=== PATIENT | female | born 1980 | race Two or more races ===

== ENCOUNTER 2022-05-12 15:07 | Outpatient (REF) | payer OTHER, SELFPAY ==
[2022-05-12 16:16] LABS: COVID-19 Test Positive (Negative); IDNOW Serial# 9DB6401D
== END 2022-05-12 15:08 | disposition home or self-care (01) ==
LOC: HO.LAB 15:07
PROVIDERS: Visit Provider Internal Medicine
DX: Z20.822 Contact with and (suspected) exposure to COVID-19 (principal)
CPT/HCPCS: 87635; C9803

== ENCOUNTER 2024-11-17 16:18 | Emergency (ER) | payer MEDICAID, SELFPAY ==
--- NOTE | ~2024-11-17 | CT_ITS ---
CLINICAL HISTORY: right flank pain CT abdomen and pelvis without contrast Comparison: None Findings: No consolidation or effusion. Gallbladder is surgically absent. No biliary ductal dilatation. The liver is mildly enlarged and demonstrates low parenchymal attenuation suggestive of steatosis. Unenhanced spleen, pancreas, adrenal glands and kidneys are unremarkable. No renal or ureteral stones and no hydronephrosis or hydroureter. No bowel obstruction, pneumoperitoneum, or pneumatosis. Appendix is unremarkable. No free fluid. Uterus within normal limits. Urinary bladder decompressed with apparent wall thickening likely from decompression. Small fat containing umbilical hernia. Abdominal aorta is normal in size. The bones are intact. IMPRESSION: 1. No acute findings. No renal or ureteral stones. 2. Previous cholecystectomy, mild hepatomegaly and hepatic steatosis. This document has been electronically signed by: Wilma Ontiveros MD on 11/17/2024 21:51:55
[2024-11-17 16:45] VITALS: BP 233/120; PULSE 104; RESP 16; TEMP 36.2; O2SAT 98; BMI 45.8
--- NOTE | 2024-11-17 16:45 | ED_ITS ---
HPI - General Adult General Chief complaint: Urogenital-Female Stated complaint: back pain-sent from urgent care Time Seen by Provider: 11/17/24 20:11 Source: patient Limitations: no limitations History of Present Illness ED Provider: Donna Garza PA-C HPI narrative: 44-year-old female with a history of morbid obesity, hypertension, who has nonadherence with her prescribed medications, presents with right flank pain x1 week. Pain over mid flank, with radiation to low back and right lower quadrant. The discomfort fluctuates in intensity, becoming severe at times. Associated dysuria, denies discoloration of her urine. Denies fever, nausea, vomiting. Denies risk for STD, no new vaginal discharge. Related Data Previous Rx's ?Medication ?Instructions ?Recorded cephalexin 500 mg capsule 500 mg PO BID #13 caps 11/17/24 Allergies Allergy/AdvReac Type Severity Reaction Status Date / Time No Known Allergies Allergy Verified 11/17/24 16:48 Review of Systems 2 Review of Systems: Yes all other systems are reviewed and are negative Constitutional: Constitutional: Denies fatigue and Denies fever(s) Cardiovascular: Cardiovascular: Denies chest pain and Denies dyspnea Respiratory: Respiratory: Denies cough and Denies dyspnea Gastrointestinal: Gastrointestinal: Reports abdominal pain, Denies nausea and Denies vomiting Genitourinary: Genitourinary: Denies hematuria, Reports dysuria and Reports flank pain Endocrine: Endocrine: Denies fatigue PMF Past Medical History Attestation statement: The following information was validated with the patient. Social History Social History Advance Directives: No Advance Directives Information Provided: No Do you have a plan to hurt others: No Plan Physical Exam ED Vital Signs: Vital Signs - 24 hr 11/17/24 16:45 11/17/24 20:31 Temperature 97.1 F 98.7 F Pulse Rate 104 H 100 Respiratory Rate 16 18 Blood Pressure 233/120 H 205/108 H Pulse Oximetry 98 97 Oxygen Delivery Method Room Air Room Air BMI result Body Mass Index 45.8 Const Other: Alert, well-appearing Orientation/consciousness: patient oriented x3 Resp Effort & Inspection: normal respiratory effort Cardio Other: Normal peripheral perfusion Back/Spine/Pelvis Other: No CVA tenderness Skin Other: Warm dry no rash Neuro General: patient oriented x3, gait normal, no focal motor deficits and CN's II- XI intact bilaterally Psych Other: Cooperative Course Course Course Narrative: RME performed by Matilde Ferguson PA-C. Patient is a 44 year old assigned female at presenting to the emergency department with low back pain and concern for kidney issues. Detailed physical exam and review of systems are deferred to the educational speech language clinician. Labs and swabs ordered. Patient placed back in the waiting room pending room availability and results. Medications Administered Discontinued Medications Generic Name Dose Route Start Last Admin Trade Name Nicholas PRN Reason Stop Dose Admin Cephalexin HCl 500 mg 11/17/24 20:48 11/17/24 21:07 Cephalexin 500 Mg Capsule PO 11/17/24 20:49 500 mg ONCE ONE Administration Ketorolac Tromethamine 15 mg 11/17/24 20:29 11/17/24 21:07 Ketorolac Tromethamine 15 Mg/Ml Vial IM 11/17/24 20:30 15 mg ONCE ONE Administration Methocarbamol 1,500 mg 11/17/24 20:29 11/17/24 21:07 Methocarbamol 750 Mg Tablet PO 11/17/24 20:30 1,500 mg ONCE ONE Administration Medical Decision Making Medical Decision Making [facility] Narrative: 44-year-old female with a history of morbid obesity, hypertension, who has nonadherence with her prescribed medications, presents with right flank pain x1 week. Pain over mid flank, with radiation to low back and right lower quadrant. The discomfort fluctuates in intensity, becoming severe at times. Associated dysuria, denies discoloration of her urine. Denies fever, nausea, vomiting. Denies risk for STD, no new vaginal discharge. Problem: Obesity, hypertension History: Per patient I have considered the following differential diagnoses: Dissection, renal colic, pyelonephritis, UTI Plan: Given distribution of discomfort in nature of symptoms, I am concerned for renal colic. She has no CVA tenderness, is afebrile, less likely to be pyelonephritis. She is just giving a urine sample now. I did consider dissection, the patient is hypertensive, she admits to nonadherence with her prescribed medications, however bilateral blood pressures were obtained, and they are within normal variance. Her pulses are equal, she is neurovascularly intact, she is stable, well-appearing, and has had symptoms for a week, she does not require dissection studies. I will be ordering a dry scan to rule out an obstructing stone. We will be giving methocarbamol, Toradol for her discomfort. I have independently reviewed the following tests: Labs: No leukocytosis, not anemic, no electrolyte abnormality, kidney function appears to be at baseline, viral panel negative, urine appears infected, we will treat accordingly CT abdomen and pelvis:Findings: No consolidation or effusion. Gallbladder is surgically absent. No biliary ductal dilatation. The liver is mildly enlarged and demonstrates low parenchymal attenuation suggestive of steatosis. Unenhanced spleen, pancreas, adrenal glands and kidneys are unremarkable. No renal or ureteral stones and no hydronephrosis or hydroureter. No bowel obstruction, pneumoperitoneum, or pneumatosis. Appendix is unremarkable. No free fluid. Uterus within normal limits. Urinary bladder decompressed with apparent wall thickening likely from decompression. Small fat containing umbilical hernia. Abdominal aorta is normal in size. The bones are intact. IMPRESSION: 1. No acute findings. No renal or ureteral stones. 2. Previous cholecystectomy, mild hepatomegaly and hepatic steatosis. This document has been electronically signed by: Wilma Ontiveros MD on 11/17/2024 21:51:55 Lab Data 11/17/24 16:59 11/17/24 16:59 Labs: Lab Results 11/17/24 11/17/24 Range/Units 16:59 20:33 WBC 9.3 (4.8-10.8) X10*3/uL RBC 4.76 (4.20-5.50) X10*6/uL Hgb 12.7 (12.0-16.0) g/dl Hct 38.9 (37.0-47.0) % MCV 81.7 (80.0-98.0) fL MCH 26.7 L (27.0-33.0) pg MCHC 32.6 (31.0-35.0) g/dl RDW 14.1 (11.0-16.0) % Plt Count 267 (160-400) X10*3/uL MPV 11.0 (9.4-12.3) fL Immature Gran % (Auto) 0.5 H (0.0-0.4) % Neut % (Auto) 46.2 (45-73) % Lymph % (Auto) 39.4 (20-40) % Tyler % (Auto) 10.8 (2-11) % Eos % (Auto) 2.9 (0-4) % Baso % (Auto) 0.2 (0-2) % Lymph # (Auto) 3.7 (1.2-4.9) X10*3/uL Tyler # (Auto) 1.0 (0.1-1.2) X10*3/uL Eos # (Auto) 0.3 (0.0-0.4) X10*3/uL Baso # (Auto) 0.0 (0.0-0.2) X10*3/uL Abs Immat Gran (auto) 0.05 H (0.00-0.03) X10*3/uL Absolute Neuts (auto) 4.3 (2.0-8.3) x10*3/uL Absolute Nucleated RBC 0.000 (0.0-0.012) X10*3/uL Nucleated RBC % (auto) 0.0 (0.0-0.2) /100WBC Sodium 140 (135-145) mmol/L Potassium 4.2 (3.3-5.1) mmol/L Chloride 112 H (96-108) mmol/L Carbon Dioxide 20 L (22-29) mmol/L Anion Gap 12 (12-20) BUN 14 (9-16) mg/dL Creatinine 0.77 (0.5-1.4) mg/dL Estim Creat Clear Calc 102.8 Estimated GFR > 60 Random Glucose 87 (60-115) mg/dL Calcium 8.9 (8.4-10.2) mg/dL Magnesium 1.9 (1.6-2.6) mg/dL Total Bilirubin 0.2 (0.0-1.0) mg/dL AST 34 H (5-31) U/L ALT 31 (0-31) U/L Alkaline Phosphatase 99 (39-117) U/L Total Protein 7.8 (6.5-8.0) g/dL Albumin 3.7 (3.5-5.0) g/dL Urine Color Yellow Urine Appearance Cloudy Urine pH 6.5 (5.0-9.0) Ur Specific Widener 1.020 (1.005-1.025) Urine Protein 100 (2+) H (Neg-Trace) mg/dL Urine Glucose (UA) Negative (Negative) mg/dL Urine Ketones Negative (Negative) mg/dL Urine Blood Moderate (2+) H (Negative) Urine Nitrite Negative (Negative) Ur Leukocyte Esterase Large (3+) H (Negative) Urine RBC 11-20 H (0-2) /HPF Urine WBC >50 H (0-5) /HPF Ur Squamous Epith Cells 0-2 (0-2) /HPF Urine Bacteria 1+ (None Seen) Hyaline Casts 0-2 (0-2) /LPF Influenza Type A (PCR) NEGATIVE (Negative) Influenza Type B (PCR) NEGATIVE (Negative) RSV RNA Qual (PCR) NEGATIVE (Negative) SARS-CoV-2 RNA (RT-PCR) NEGATIVE (Negative) Discharge Plan Discharge Clinical Impression: Urinary tract infection Patient Disposition: Home, Self-Care Instructions: Urinary Tract Infection in Women (ED) Additional Instructions: You were found to have a urinary tract infection, the remainder of your labs were normal. The CT scan was negative for any acute infection. Take the cephalexin as directed, this is the antibiotic use to treat your urinary tract infection. Follow up with your primary care provider as needed. You were noted to have elevated blood pressures, you should take your prescribed medications as directed. Prescriptions: New cephalexin 500 mg capsule 500 mg PO BID Qty: 13 0RF Print Language: Barbadian
--- OUTSIDE RECORDS SUMMARY | 2024-11-17 17:03 | XMS_ITS | Encounter Summary ---
Author Organization [facility] Address [address] [place] [address] Phone Care Team Providers Care Lieutenant Ballistics Name Role Phone Franklyn Morales Primary Care Provider [phone] Encounter Details Date Type Department Care Team (Late st Contact Info) Description 02/04/2022 Documentation Only [facility], [address] [place] [address] Franklyn Morales FNP [address] [place] [address] Social History Tobacco Use Types Packs/Day Years Used Date Smoking Tobacco: Never Assessed Comments Unknown Sex and Gender Information Value Date Recorded Sex Assigned at Not on file Legal Sex Female 1:37 PM EDT Gender Identity Not on file Sexual Orientation Not on file documented as of this encounter Plan of Treatment Not on file documented as of this encounter Visit Diagnoses Not on filedocumented in this encounter Care Teams Lieutenant Ballistics Relationship Specialty Start Date End Date Farnklyn Morales FNP [address] [place] [address] PCP - General Nurse Practitioner 02/04/22 documented as of this encounter
--- OUTSIDE RECORDS SUMMARY | 2024-11-17 17:03 | XMS_ITS | Clinical Summary ---
Author Organization [facility] Address [address] [place] [address] Phone Care Team Providers Care Deputy County Attorney Name Role Phone Franklyn Morales LINDSEY Primary Care Provider [phone] Allergies Active Allergy Reactions Criticality Noted Date Comments Amlodipine 10/20/2020 swelling Covid-19 (Mrna) Vaccine 02/18/2022 headache Covid-19 Mrna Vacc (Moderna) 022 headache Lisinopril 10/20/2020 doesn't feel right Pneumococcal Vac Polyvalent 02/19/20 22 headache Medications aspirin (ST GEO) 81 MG EC tablet Take 1 tablet by mouth 1 (one) time each day 11/02/2021 Active topiramate (TOPAMAX) 50 MG tablet Take 50 mg by mouth 12/05/2023 Active rosuvastatin (CRESTOR) 40 MG tablet Take 40 mg by mouth 1 (one) time each day in the evening 12/20/2023 Active valsartan (DIOVAN) 320 MG tablet Take 320 mg by mouth 1 (one) time each day 10/18/2023 Active labetalol (NORMODYNE) 300 MG tablet Take 300 mg by mouth in the morning and 300 mg at noon and 300 mg in the evening. 10/18/2023 Active cloNIDine (CATAPRES) 0.1 MG tablet Take 0.1 mg by mouth in the morning and 0.1 mg at noon and 0.1 mg in the evening. 12/13/2023 Active hydroCHLOROthia zide 25 MG tablet Take 25 mg by mouth 1 (one) time each day 12/23/2023 Active NIFEdipine CC (ADALAT CC) 90 MG 24 hr tablet Take 90 mg by mouth 1 (one) time each day 12/23/2023 Active spironolactone (ALDACTONE) 100 MG tablet Take 1 tablet (100 mg total) by mouth 1 (one) time each day 90 tablet 3 01/16/2024 Active Active Problems Problem Noted Date Diagnosed Date Tobacco dependence syndrome 01/12/2024 Severe obesity 01/12/2024 Hypokalemia 01/12/2024 Hypertensive disorder 01/12/2024 Anxiety 01/12/2024 Obstructive sleep apnea syndrome 12/20/2023 Overview (01/12/2024): Awaiting cpap November 2023 Diastolic dysfunction 12/20/2023 Overview (01/12/2024): [facility] echo, November 2023 Adrenal adenoma 12/20/2023 Family history of cancer of colon 09/29/2022 Cyst of right breast 09/29/2022 Cardiac murmur 09/29/2022 Thyroid nodule 05/21/2022 Overview (01/12/2024): April 2022: Negative Biopsy at [facility] Benign essential hypertension 02/18/2017 Tobacco user 02/18/2017 Obese class II 02/18/2017 History of cerebrovascular accident 02/18/2017 Mixed anxiety and depressive disorder 02/18/2017 Immunizations Name Administration Dates Next Due Influenza, Quadrivalent, Preservative Free 07/23 Influenza, Unspecified 08/04/2004 Pfizer SARS-COV-2 02/04/2022 Pneumococcal Polysaccharide 02/04/2022, 0 Tdap 04/14/2018 Social History Tobacco Use Types Packs/Day Years Used Date Smoking Tobacco: Every Day Cigarettes Smokeless Tobacco: Never Comments Unknown Sex and Gender Information Value Date Recorded Sex Assigned at Not on file Legal Sex Female 1:37 PM EDT Gender Identity Not on file Sexual Orientation Not on file Last Filed Vital Signs Vital Sign Reading Time Taken Comments Blood Pressure 170/98 01/16/2024 9:16 AM EDT Pulse 78 01/16/2024 9:16 AM EDT Temperature - - Respiratory Rate - - Oxygen Saturation - - Inhaled Oxygen Concentration - - Weight 98.4 kg (217 lb) 01/16/2024 9:16 AM EDT Height - - Body Mass Index - - Plan of Treatment Health Maintenance Due Date Last Done Comments Hepatitis B Vaccine (1 of 3 - 19+ 3-dose series) 1999 Pneumococcal Vaccine: Pediat rics (0 to 5 Years) and At-Risk Patients (6 to 64 Years) (3 of 3 - PCV) 02/04/2023 02/04/2022, 02/22/2020 Influenza Vaccine (#1) 2024 07/23/2019, 2003 Insurance [facility] MEDICAID Care Teams Deputy County Attorney Relationship Specialty Start Date End Date Franklyn Morales FNP [facility] [place] [address] PCP - General Nurse Practitioner 02/04/22
--- OUTSIDE RECORDS SUMMARY | 2024-11-17 17:03 | XMS_ITS | Clinical Summary ---
Author Organization [facility] Address [address] [place] [address] Care Team Providers Care Master Sheet Clerk Name Role Phone Timbo Toscano MD Primary Care Provider [phone] Immunizations Name Administration Dates Next Due Pfizer SARS-CoV-2 COVID-19, mRNA, LNP-S, preservative free 02/04/2022 Social History Tobacco Use Types Packs/Day Years Used Date Smoking Tobacco: Former Cigarettes Q uit: 09/26/2021 Smokeless Tobacco: Never Comments Unknown Sex and Gender Information Value Date Recorded Sex Assigned at Not on file Legal Sex Female 3:58 AM EST Gender Identity Not on file Sexual Orientation Not on file Obstetrics History Last Filed Vital Signs Vital Sign Reading Time Taken Comments Blood Pressure 180/110 10/27/2022 10:39 AM EST Pulse 88 10/27/2022 10:05 AM EST Temperature - - Respiratory Rate - - Oxygen Saturation - - Inhaled Oxygen Concentration - - Weight 104 kg (229 lb) 10/27/2022 10:05 AM EST Height 152.4 cm (5') 10/27/2022 10:05 AM EST Body Mass Index 44.72 10/27/2022 10:05 AM EST Plan of Treatment Health Maintenance Due Date Last Done Comments Breast Cancer Screening 1980 DTaP,Tdap,and Td Vaccines (1 - Tdap) 1999 Hepatitis B Vaccines (1 of 3 - 19+ 3-dose series) 1999 Pneumococcal Vaccine: Pediat rics (0 to 5 Years) and At-Risk Patients (6 to 64 Years) (1 of 2 - PCV) 1999 Cervical Cancer Screening: P ap Smear 2001 COVID-19 Vaccine (2 - Pfizer risk series) 02/25/2022 02/04/2022 Cholesterol Screening (Lipid Panel) 09/05/2022 Depression Screening 09/05/2022 HIV Screening 09/05/2022 Hepatitis C Screening 09/05/2022 Social Influencers of Health Screening 09/05/2022 Hypertension/CHF/CAD Annual BMP Blood Test 11/10/2023 Influenza Vaccine (#1) 2024 HIB Vaccines Aged Out No longer eligi ble based on patient's age to complete this topic HPV Vaccines Aged Out No longer eligi ble based on patient's age to complete this topic Hepatitis A Vaccines Aged Out No long er eligible based on patient's age to complete this topic IPV Vaccines Aged Out No longer eligi ble based on patient's age to complete this topic MMR Vaccines Aged Out No longer eligi ble based on patient's age to complete this topic Meningococcal ACWY Vaccine Aged Out N o longer eligible based on patient's age to complete this topic Meningococcal B Vacine Aged Out No lo nger eligible based on patient's age to complete this topic RSV Immunization Patients Un marty 20 months Aged Out No longer eligible b ased on patient's age to complete this topic Varicella Vaccines Aged Out No longer eligible based on patient's age to complete this topic Care Teams Master Sheet Clerk Relationship Specialty Start Date End Date Timbo Toscano MD [address] [facility] [id number] [place] [address] PCP - General Internal Medicine 06/21/22
--- OUTSIDE RECORDS SUMMARY | 2024-11-17 17:04 | XMS_ITS | Clinical Summary ---
Author Organization [facility] Address [address] [place] [address] Care Team Providers Care Catalyst Operator Chief Name Role Phone Franklyn Morales Primary Care Provider [phone] Source Comments PLEASE NOTE, if this patient is a minor, it may be UNLAWFUL to discuss sensitive information that is contained in these records (such as FAMILY PLANNING, MENTAL HEALTH or SUBSTANCE ABUSE) with the minor patient's parent or other person without the patient's specific authorization.[facility] Allergies Active Allergy Reactions Criticality Noted Date Comments Amlodipine 10/20/2020 swelling Covid-19 Vacc,Mrna(Pfizer)(Pf) 02/18/2022 headache Lisinopril 10/20/2020 doesn't feel right Pneumococcal 23-Fely Ps Vaccine 02/18/2022 headache Medications conjugated estrogens (PREMARIN) 0.625 mg/gram vaginal creamIndications :Vaginal dryness Place 0.5 g vaginally twice a week 42.5 g 3 2 Active blood pressure monitorIndicatio ns:Hypertensive urgency Dispense one automated BP monitor, to be used daily and prn, length of need 99 years 1 Kit 1 2 Active aspirin [address] tablet TAKE 1 TABLET BY MOUTH EVERY DAY 90 Tablet 3 4 Active cloNIDine (CATAPRES) 0.1 mg tablet Take 0.1 mg by mouth 3 (three) times daily 4 Active furosemide (LASIX) 40 mg tablet TAKE 1 TABLET EVERY DAY NEEDED FOR WEIGHT GAIN OF 3 POUNDS OR MORE IN A DAY OR 5 POUNDS OR MORE IN A WEEK. 4 Active spironolactone (ALDACTONE) 50 mg tablet Take 50 mg by mouth once daily 4 Active rosuvastatin (CRESTOR) 40 mg tablet Take 1 Tablet by mouth once daily Every evening 90 Tablet 1 4 Active valsartan-hydroc hlorothiazide (DIOVAN-HCT) 320-12.5 mg per tabletIndication s:Uncontrolled stage 2 hypertension Take 1 Tablet by mouth once daily For blood pressure 90 Tablet 1 4 Active topiramate (TOPAMAX) 50 mg tablet Take 1 Tablet by mouth 2 (two) times daily Pharmacy: [facility]/pharmacy #[id number] - [place], [place] [phone] ntity: 60 EachRefills RemaininDays Supply: 30Sig: TAKE 1 TABLET BY MOUTH TWICE A DAYSource: Surescripts (Fill History, Ambulatory)Auth orized by: MNANY WHITE IN GEO 180 Tablet 4 Active NIFEdipine (PROCARDIA XL) 90 mg 24 hr tablet Take 1 Tablet by mouth once daily 90 Tablet 4 Active hydrOXYzine pamoate (VISTARIL) 25 mg capsuleIndicatio ns:Anxiety Take 1 Capsule by mouth 3 (three) times daily as needed for anxiety 30 Capsule 1 4 Active labetaloL (NORMODYNE) 300 mg tabletIndication s:Uncontrolled stage 2 hypertension TAKE 1 TABLET BY MOUTH 3 (THREE) TIMES DAILY FOR BLOOD PRESSURE 270 Tablet 4 Active Active Problems Problem Noted Date Diagnosed Date RADHA (obstructive sleep apnea) 12/20/2023 Overview (12/20/2023): Awaiting cpap November 2023 Class 3 severe obesity due t o excess calories with serious comorbidity and body mass index (BMI) of 40.0 to 44.9 in adult ([facility]) 12/20/2023 Grade II diastolic dysfunction 12/20/2023 Overview (12/20/2023): [facility] echo, November 2023 Adrenal adenoma 12/20/2023 Thyroid nodule greater than or equal to 1 cm in diameter incidentally noted on imaging study 05/21/2022 Overview (05/21/2022): April 2022: Negative Biopsy at [facility] Family history of colon cancer 07/23/2019 Overview (07/23/2019): Mother dx age 52 Cyst of right breast 02/16/18, repeat 3 mos 07/21 Overview (07/21/2019): 02/16/18 - R Breast U/S: IMPRESSION: 1. The ultrasound examination corresponds with a 14 mm focal oval abnormality that is mostly solid with a possible small cystic central component. The ultrasound appearance favors a benign etiology, particularly one which could potentially due to localized injury or inflammation. The patient is unaware of any recent injury. The ultrasound appearance would be unusual for neoplasm. 2. Given the likely benign and possibly transient nature that is suspected by the ultrasound appearance, I would favor a short-term follow-up ultrasound to determine whether this resolves. Specifically I would recommend follow-up right breast ultrasound in 3 months. RECOMMENDATION: Right breast ultrasound BI-RADS: 3 (Probably Benign) Benign essential HTN 02/18/2017 Heart murmur 02/18/2017 History of CVA (cerebrovascular accident) 2016 Tobacco abuse disorder 02/18/2017 Overview (08/02/2022): Quit smoking December 2021 Obesity, Class II, BMI 35-39.9 02/18/2017 Resolved Problems Problem Noted Date Diagnosed Date Resolved Date Homelessness 2018 02/04/2022 Iron deficiency anemia 04/16/201802/04 Hx of hypokalemia 04/16/2018 02/04/2022 Overview (04/16/2018): 04/14/18 - K+ 3.1 Anxiety and depression 02/18/201712/27 Immunizations Name Administration Dates Next Due Flu, Preservative Free 07/23/2019 INFLUENZA, SEASONAL, INJECTABLE 10/16/2013 INFLUENZA, UNSPECIFIED 08/04/2004 PFIZER COVID VACCINE, PURPLE CAP, 12+ 02/04/2022 PNEUMOCOCCAL POLYSACCHARIDE PPV23 02/04/2022 TDAP 04/14/2018 Family History Medical History Relation Name Comments Hypertension Brother 2 Unknown Brother 3 murdered by ruth olivoriwalter 2015 Diabetes Father Heart Problems Father NE Hypertension Father Cancer Mother fro m colon cancer Relation Name Status Comments Brother 1 Alive Brother 2 Alive Brother 3 Father Alive Mother Social History Tobacco Use Types Packs/Day Years Used Date Smoking Tobacco: Every Day Cigarettes 0.5 22 Smokeless Tobacco: Former Tobacco Cessation:Ready to Q uit: Not Asked; Counseling Given: Not Answered Comments:3 cigs a day Alcohol Use Standard Drinks/Week Comments No 0 (1 standard drink = 0.6 oz pur e alcohol) Social Connections Answer Date Recorded Connectedness 1 12/20/2023 Financial Resource Strain Answer Date R ecorded Financial Resource Strain 1 2023 Stress Answer Date Recorded Stress 1 12/20/2023 Physical Activity Answer Date Recorded Physical Activity 0 05/20/2019 Food Insecurity Answer Date Recorded Food 1 12/20/2023 Transportation Needs Answer Date Record ed Transportation 1 12/20/2023 Housing Stability Answer Date Recorded Housing 1 12/20/2023 Safety and Environment Answer Date Wild rded Safety 1 12/20/2023 Utilities Answer Date Recorded Utilities 1 12/20/2023 Employment Answer Date Recorded Employment 0 05/20/2019 Comments No Sex and Gender Information Value Date Recorded Sex Assigned at Female 11/18/2017 8:13 AM PST Legal Sex Female 11:36 AM PDT Gender Identity Female 11/18/2017 8:13 AM PST Sexual Orientation Straight 11/18/2017 8: 13 AM PST 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 Not on file Not on file Last Filed Vital Signs Vital Sign Reading Time Taken Comments Blood Pressure 148/83 12/20/2023 3:33 PM EDT Pulse 74 12/20/2023 3:33 PM EDT Temperature 36.8 ??C (98.2 ??F) 12/20/2023 3:33 PM ED T Respiratory Rate 20 12/20/2023 3:33 PM EDT Oxygen Saturation 99% 07/18/2023 10:42 AM EDT Inhaled Oxygen Concentration - - Weight 97.8 kg (215 lb 9.6 oz) 12/20/2023 3:33 P M EDT Height 152.4 cm (5') 12/20/2023 3:33 PM EDT Body Mass Index 42.11 12/20/2023 3:33 PM EDT Plan of Treatment Health Maintenance Due Date Last Done Comments HPV Screening 1980 Imm-Hepatitis B (1 of 3 - 19 + 3-dose series) 1999 Breast Cancer Screening (Mammogram) 2020 Imm-Pneumococcal (2 of 2 - PCV) 02/04/2023 , 02/22/2020 Pap Smear 02/11/2024 02/10/2021 Cde-FAGJT-53 (2 - 2023- season) 2024 022 Diabetes Screening 06/17/2024 06/17/2023, 0 01/25/2022, 01/25/2022, Additional history exists Lipid Screening 06/17/2024 06/17/2023, 05/0 10/2021, 10/20/2020, Additional history exists Alcohol and Drug Screen 09/26/2024 12/20/19, 07/16/2022, 02/16/2022, Additional history exists Depression Annual Screen 09/26/2024 12/20/2023, 02/24 Annual Preventive Care Visit 12/19/2024, 02/04/2022, 04/14/2018, Additional history exists Relationship Safety Screening/Counseling 12/19/2024 12/20/2023, 07/16/2022, 02/16/2022, Additional history exists Tobacco Cessation Counseling (#1) 12/19/2024 12/20/2023, 06/17/2023, 08/02/2022, Additional history exists Cervical Cancer Screening 02/10/2026 Pap + HPV 02/10/2026 02/10/2021 Imm-DTaP/Tdap/Td (2 - Td or Tdap) 04/14/2028 018 Imm-Influenza Discontinued 07/23/2019, 09/27, 08/04/2004 HIV Screening Completed 10/20/2020, 04/14/2018 Hepatitis C Screening Completed 10/20/2020 Cervical Ablation/Cold-Knife Conization Discontinued Cervical Cryotherapy Discontinued Colposcopy Discontinued Endometrial Biopsy Discontinued Excision/Leep Discontinued HPV Genotyping Discontinued Vaginal Pap Discontinued Vulvoscopy Discontinued Goals Goal Patient Goal Type Associated Problems Recent Progress Patient-Stated? Author Blood Pressure < 130/80 Blood Pressure Benign essential HTN 148/83(2023 3:33 PM EDT) No Kala Linton PharmD Hypertension: Decrease sodium intake General No Rohan Arias PharmD Exercise 30 minutes daily Lifestyle No Rohan Arias PharmD Procedures Procedure Name Priority Date/Time Associated Diagnosis Comments BASIC METABOLIC PANEL CALCIUM TOTAL Routine 06/17/2023 2:50 PM EDT Uncontrolled stage 2 hypertension LIPID PANEL Routine 06/17/2023 2:50 PM EDT Uncontrolled stage 2 hypertension THIN PREP IMAGE PAP + HPV RNA E6/E7 W/RFLX HPV 16, 18/45 Routine 02/10/2021 1:17 PM EDT Cervical cancer screening ANTIBODY HIV-1&HIV-2 SINGLE RESULT Routine 10/20/2020 3:50 PM EST Benign essential HTN HEPATITIS C ANTIBODY Routine 10/20/2020 3:50 PM EST Benign essential HTN from Last 3 Months or Most Recently Relevant to Health Maintenance Results * (ABNORMAL) LIPID PANEL (06/17/2023 2:50 PM EDT) Pathologist [facility] CHOLESTEROL, TOTAL 208(H) <200 mg/dL [facility] HDL CHOLESTEROL 37(L) > OR = 50 mg/dL [facility] TRIGLYCERIDES 448(H) <150 mg/dL [employer] Comment: If a non-fasting specimen was collected, consider repeat triglyceride testing on a fasting specimen if clinically indicated. Chandan et al. J. of Clin. Lipidol. 2015;9:129-169. LDL-CHOLESTEROL See Note [facility] [employer] Comment: LDL cholesterol not calculated. Triglyceride levels greater than 400 mg/dL invalidate calculated LDL results. Reference range: <100 Desirable range <100 mg/dL for primary prevention; ?? <70 mg/dL for patients with CHD or diabetic patients with > or = 2 CHD risk factors. LDL-C is now calculated using the Berry calculation, which is a validated novel method providing better accuracy than the Friedewald equation in the estimation of LDL-C. Colin KHAN et al. GUEVARA. 2013;310(19): 6382-8766 (http://education.eCozy/faq/SAF035) CHOL/HDLC RATIO 5.6(H) <5.0 (calc) [facility] NON-HDL CHOLESTEROL 171(H) <130 mg/dL (calc) [facility] Comment: For patients with diabetes plus 1 major ASCVD risk factor, treating to a non-HDL-C goal of <100 mg/dL (LDL-C of <70 mg/dL) is considered a therapeutic option. Blood Blood / Unknown 06/17/2023 2 :50 PM EDT 06/17/2023 2:51 PM EDT Rohan Arias PharmD LAB - BLOOD DRAW Final Re sult [facility] [address] [address], [facility] [address] [address] * (ABNORMAL) BASIC METABOLIC PANEL CALCIUM TOTAL (06/17/2023 2:50 PM EDT) Pathologist [facility] GLUCOSE 80 65 - 99 mg/dL [facility] Comment: ?Fasting reference interval UREA NITROGEN (BUN) 11 7 - 25 mg/dL [facility] CREATININE (blood) 0.92 0.50 - 0.99 mg/dL [facility] EGFR 80 > OR = 60 mL/min/1. 73m2 [facility] BUN/CREATININE RATIO SEE NOTE: [employer] [facility] Comment: ?? Not Reported: BUN and Creatinine are within ?? reference range. ? SODIUM 140 135 - 146 mmol/L [facility] POTASSIUM 3.2(L) 3.5 - 5.3 mmol/L [facility] CHLORIDE 106 98 - 110 mmol/L [facility] CARBON DIOXIDE 25 20 - 32 mmol/L [facility] CALCIUM 8.7 8.6 - 10.2 mg/dL [facility] Blood Blood / Unknown 06/17/2023 2 :50 PM EDT 06/17/2023 2:51 PM EDT us Rohan Arias PharmD LAB - BLOOD DRAW Final Re sult [facility] [address] [address], [facility] [address] [address] * THIN PREP IMAGE PAP + HPV RNA E6/E7 W/RFLX HPV 16, 18/45 (02/10/2021 1:17 PM EDT) CLINICAL INFORMATION See Note [facility] Comment:Routine exam LMP See Note [facility] Comment:[id number] PREV. PAP [facility] [place] Note PREV. BX See Note [facility] [place] Note Comment:NONE GIVEN SOURCE See Note [facility] Comment:Cervix STATEMENT OF ADEQUACY See Note [facility] [place] Note Comment: Satisfactory for evaluation. Endocervical/transformation zone component present. INTERPRETATION/RESU LT See Note [facility] Comment:Negative for intraep ithelial lesion or malignancy. COMMENT See Note [facility] Comment: This case could not be evaluated with computer assisted technology. The slide was manually screened according to routine procedures. ALLOY WEIGHER See Note [facility] [employer] [facility] Comment: GSG, CT(ASCP) CT screening location: [address] ??[address] COMMENT [employer] HPV MRNA E6/E7 Not Detected Not Detected [facility] Comment: Methodology: Caul Puller-Mediated Amplification This assay detects E6/E7 viral messenger RNA (mRNA) from 14 high-risk HPV types (16,18,31,33,35,39,45,51,52,56,58,59,66,68). The analytical performance characteristics of this assay have been determined by [employer]. The modifications have not been cleared or approved by the FDA. This assay has been validated pursuant to the CLIA regulations and is used for clinical purposes. For additional information, please refer to http://education.Speakermix/faq/ZXA821m7 (This link if provided for information/ educational purposes only.) Cervix Cervix uteri structure / Unknown 02/10/2021 1:17 PM EDT 02/10/2021 8:26 PM EDT Narrative [facility] - 02/11/2021 4:53 PM EDT EXPLANATORY NOTE: The Pap is a screening test for cervical cancer. It is not a diagnostic test and is subject to false negative and false positive results. It is most reliable when a satisfactory sample, regularly obtained, is submitted with relevant clinical findings and history, and when the Pap result is evaluated along with historic and current clinical information. Marlena Jennings RESTAURANT OPERATIONS MANAGER-C LAB - NO BLOOD DRAW Final Re sult Performing Organization Address City/[facility]/ZIP Co de Phone Number [facility] [address] [address], [facility] [address] [address] * HEPATITIS C ANTIBODY (10/20/2020 3:50 PM EST) Pathologist [facility] HEPATITIS C VIRUS SCREEN NEGATIVE NEGATIVE [facility] Blood Blood / Unknown 10/20/2020 3 :50 PM EST 10/20/2020 7:35 PM EST Narrative [facility] - 10/20/2020 9:08 PM EST [employer] [place] [address] Plunger Shovel Operator - Cassandra Batres MD PT ID [id number] ORD# [id number] Franklyn Morales [facility] LAB - BLOOD DRAW Edited R esult - Final Performing Organization Address [facility]/ZIP Co de Phone Number [facility] [employer] [address], * HIV-1 & HIV-2 ANTIBODIES (10/20/2020 3:50 PM EST) Pathologist [facility] HIV 1 AND 2 ANTIBODY SCREEN NEGATIVE NONREACTIVE [facility] Comment: HIV testing performed at reference lab due to reagent backorder. Test performed at: [address] [address] Kranthi Lopez MD- Plunger Shovel Operator Blood Blood / Unknown 10/20/2020 3 :50 PM EST 10/20/2020 7:35 PM EST Narrative [facility] - 10/23/2020 2:32 PM EST [facility], a member of [address] [address] Plunger Shovel Operator - Cassandra Batres MD PT ID [id number] ORD# [id number] Franklyn FARFANP LAB - BLOOD DRAW Final Re sult [facility] [address] [place] [address], [place] [phone] from Last 3 Months or Most Recently Relevant to Health Maintenance [place] MED[place] DENTAL HEALTH SAFETY NET [facility] Care Teams Catalyst Operator Chief Relationship Specialty Start Date End Date Franklyn Morales FNP [address] [place] [address] PCP - General Family Medicine, ROLLER PRESSER OPERATOR 10/06/20
--- OUTSIDE RECORDS SUMMARY | 2024-11-17 17:04 | XMS_ITS ---
Author Organization [facility] Address [address] [place] [address] Care Team Providers Care Air Shovel Operator Name Role Phone Franklyn Morales Primary Care Provider [phone] [phone] SA[facility] Program Status:Enrolled (Active) Start date:09/15/2022 Enrollment date:09/15/2022 Enrollment reason:Referred by provider Case Team Name Relationship Phone Rohan Arias PharmD (Responsible Staff) Continued Care and Services Coordination
[2024-11-17 17:05] LABS: MANUAL DIFF FLAG NO
[2024-11-17 17:06] LABS: Basophils Percent Auto 0.2 % (0-2); Eosinophils Absolute Auto 0.3 X10*3/uL (0.0-0.4); Eosinophils Percent Auto 2.9 % (0-4); Hematocrit 38.9 % (37.0-47.0); Hemoglobin 12.7 g/dl (12.0-16.0); Imm Gran Abs Auto 0.05 X10*3/uL (0.00-0.03); Imm Gran Pct Auto 0.5 % (0.0-0.4); Lymphocytes Absolute Auto 3.7 X10*3/uL (1.2-4.9); Lymphocytes Percent Auto 39.4 % (20-40); Mean Corpuscular HGB Conc 32.6 g/dl (31.0-35.0); Mean Corpuscular Hemoglobin 26.7 pg (27.0-33.0); Mean Corpuscular Volume 81.7 fL (80.0-98.0); Monocytes Percent Auto 10.8 % (2-11); Neutrophils Absolute Auto 4.3 x10*3/uL (2.0-8.3); Neutrophils Percent Auto 46.2 % (45-73); Platelet Count 267 X10*3/uL (160-400); Red Blood Count 4.76 X10*6/uL (4.20-5.50); Red Cell Distribution Width 14.1 % (11.0-16.0); White Blood Count 9.3 X10*3/uL (4.8-10.8)
[2024-11-17 17:26] LABS: Alanine Aminotransferase 31 U/L (0-31); Albumin Level 3.7 g/dL (3.5-5.0); Alkaline Phosphatase 99 U/L (39-117); Anion Gap 12 (12-20); Aspartate Amino Transferase 34 U/L (5-31); Bilirubin Total 0.2 mg/dL (0.0-1.0); Blood Urea Nitrogen 14 mg/dL (9-16); Calcium 8.9 mg/dL (8.4-10.2); Carbon Dioxide 20 mmol/L (22-29); Chloride 112 mmol/L (96-108); Creatinine Clr Calc Pharmacy 102.8; Estimated Glomerular Filt Rate > 60; Glucose Random 87 mg/dL (60-115); Magnesium 1.9 mg/dL (1.6-2.6); Potassium 4.2 mmol/L (3.3-5.1); Sodium 140 mmol/L (135-145); Total Protein 7.8 g/dL (6.5-8.0)
[2024-11-17 17:48] LABS: Influenza A PCR NEGATIVE (Negative); Influenza B PCR NEGATIVE (Negative); Resp Syncy Virus RNA Qual PCR NEGATIVE (Negative); SARS COV2 PCR INHOUSE NEGATIVE (Negative)
[2024-11-17 20:31] VITALS: BP 205/108; PULSE 100; RESP 18; TEMP 37.1; O2SAT 97
[2024-11-17 20:40] LABS: Appearance Urine Cloudy; Color Urine Yellow; Glucose Urine UA Negative (Negative); Leukocyte Esterase Urine Large (3+) (Negative); Nitrite Urine Negative (Negative); PH 6.5 (5.0-9.0); UMIC TRIGGER UACC YES; Urine Blood Moderate (2+) (Negative); Urine Ketones Negative (Negative); Urine Protein 100 (2+) mg/dL (Neg-Trace)
[2024-11-17 20:43] LABS: Bacteria Urine 1+ (None Seen); Hyaline Casts Urine 0-2 /LPF (0-2); Squamous Epithelial Cell Urine 0-2 /HPF (0-2); UACC Culture Trigger YES; WBC Urine >50 /HPF (0-5)
[2024-11-17] MEDS: Ketorolac Tromethamine 15 MG/ML VIAL IM (21:07)
[2024-11-17] MEDS: methocarbamoL 750 MG TABLET 1500 MG PO (21:07)
[2024-11-17] MEDS: cephALEXin 500 MG CAPSULE PO (21:07)
[2024-11-17 22:08] VITALS: BP 205/108; PULSE 100; RESP 18; TEMP 37.1; O2SAT 97
== END 2024-11-17 22:09 | disposition home or self-care (01) ==
PROVIDERS: Physician Assistant Medical; Emergency Provider Emergency Medicine
DX: N39.0 Urinary tract infection, site not specified (principal); B96.20 Unspecified Escherichia coli [E. coli] as the cause of diseases classified elsewhere; R10.31 Right lower quadrant pain; M54.50 Low back pain, unspecified; Z03.818 Encounter for observation for suspected exposure to other biological agents ruled out; I10 Essential (primary) hypertension; E66.01 Morbid (severe) obesity due to excess calories; Z68.42 Body mass index [BMI] 45.0-49.9, adult
CPT/HCPCS: 0241U; 74176; 80053; 81001; 83735; 85025; 87086; 87088; 87186; 96372; 99283; 99284; J1885

== ENCOUNTER → 2024-11-17 20:28 | Outpatient (BNV) | payer MEDICAID, SELFPAY | PROVIDERS: Emergency Provider Emergency Medicine; Visit Provider Specialist | DX: R10.9 Unspecified abdominal pain (principal) | CPT/HCPCS: 74176 ==